=== PATIENT | male | born 1980 | race Caucasian/White ===

== ENCOUNTER 2020-06-07 14:49 | Emergency (ER) | payer OTHER | END 2020-06-07 15:46 | disposition other institution (70) | LOC: ED 14:49 | DX: Z02.89 Encounter for other administrative examinations (principal) ==

== ENCOUNTER 2020-06-07 14:49 | Emergency (ER) | payer SELFPAY ==
[~2020-06-07] VITALS: Ht 177.8 cm; Wt 79.4 kg
[2020-06-07 14:59] VITALS: Ht 177.8 cm; Wt 79.4 kg
[2020-06-07 15:45] VITALS: BP 117/76
== END 2020-06-07 15:46 | disposition other institution (70) ==
LOC: ED 14:49
DX: R00.0 Tachycardia, unspecified (principal); F15.10 Other stimulant abuse, uncomplicated
CPT/HCPCS: 82962; 99406